=== PATIENT | male | born 1980 | race American Indian/Alaskan Native ===

== ENCOUNTER 2017-10-13 11:50 | Emergency (ER) | payer OTHER ==
[2017-10-13 12:28] LABS: Bilirubin,Urine NEG (Negative); Blood,Urine NEG (Negative); Color,Urine Straw (Yellow); Protein,Urine <15 mg/dL mg/dL (Negative); Urobilinogen,Urine < 2.0 mg/dL (<2.0)
[2017-10-13] MEDS ORDERED: NORCO 5/325 PO ONE (12:48)
--- NOTE | 2017-10-13 12:57 | Emergency Department Report ---
HPI - General Chief Complaint: Urogenital-Male Time Seen by Provider: 10/13/17 12:41 - HPI HPI: Room 19 The patient is a 37-year-old male presented with a chief complaint of groin pain. The patient states he noticed he had an erection this morning at 03:00 and it persisted even while he was asleep. Patient denies using any erectile dysfunction medications prescribed or [id number]. The patient states it wasn't until he was on his way to the hospital at 11:53 this morning when he began to experience detumescence. The patient states he no longer has an erection however he is developed intermittent waves of pain in his testicles. The patient currently denies testicular pain but states it comes in waves and when it is present he gives it a score of 8/10. Location: Groin/testicles Duration: [See above] Quality: Pain Severity: Currently 0/10 Modifying factors: [see above] Context: [see above] Mode of transportation: [not driving] ED Past Medical Hx - Past Medical History Hx Psychiatric Treatment: Yes (bipolar,anxiety) Hx Asthma: Yes Hx HIV: Yes (normal CD4 count September 2017) Additional medical history: Colitis - Surgical History Past Surgical History?: No - Family History Family history: no significant - Social History Smoking Status: Current Every Day Smoker (6 cigarettes daily) Substance Use Type: Alcohol (rarely), Marijuana - Medications Home Medications: Home Medications Medication Instructions Recorded Confirmed Last Taken Type Ciprofloxacin HCl [Cipro] 500 mg PO Q12H #20 tab 12/20/13 Unknown Rx HYDROcodone/APAP 5-325 [[place] 1 each PO Q6HR PRN #20 tablet 01/09/15 Unknown Rx 5/325] Ibuprofen [Motrin] 600 mg PO Q8H PRN #40 tablet 01/09/15 Unknown Rx Sulfamethoxazole/Trimethoprim 1 each PO BID #20 tablet 01/09/15 Unknown Rx [Bactrim DS TAB] Clindamycin [Clindamycin CAP] 300 mg PO Q6H #28 capsule 01/11/15 Unknown Rx Sulfamethoxazole/Trimethoprim 1 each PO Q12H #10 tablet 01/13/15 Unknown Rx [Bactrim DS TAB] HYDROcodone/APAP 5-325 [[facility] 1 - 2 each PO Q6HR PRN #10 tablet 10/13/17 Unknown Rx 5/325] Ibuprofen [Motrin 800 MG tab] 800 mg PO Q8HR PRN #20 tablet 10/13/17 Unknown Rx Levofloxacin [Levaquin TAB] 500 mg PO QDAY #7 tablet 10/13/17 Unknown Rx ED Review of Systems ROS: Stated complaint: 7 HR ERECTION Other details as noted in HPI Constitutional: denies: fever Eyes: denies: eye pain ENT: denies: throat pain Cardiovascular: denies: chest pain Gastrointestinal: denies: abdominal pain Genitourinary: dysuria Musculoskeletal: denies: back pain Neurological: denies: headache Physical Exam - Physical Exam Vital Signs: Vital Signs 10/13/17 11:56 Temperature 98.4 F Pulse Rate 88 Respiratory 18 Rate Blood Pressure 127/78 O2 Sat by Pulse 100 Oximetry ED Course Vital Signs 10/13/17 11:56 Temperature 98.4 F Pulse Rate 88 Respiratory 18 Rate Blood Pressure 127/78 O2 Sat by Pulse 100 Oximetry - Reevaluation(s) Reevaluation #1: 10/13/17 13:05 Patient states he feels like he is getting an erection again. On exam the patient is still flaccid. Will administer terbutaline Reevaluation #2: 10/13/17 13:58 Patient states he feels completely improved. Patient states he does not have an erection. Patient is asymptomatic currently ED Medical Decision Making - Lab Data Laboratory Tests 10/13/17 12:04 Urine Color Straw Urine Turbidity Clear Urine pH 8.0 H Ur Specific [place] 1.006 Urine Protein <15 mg/dl Urine Glucose (UA) Neg Urine Ketones Neg Urine Blood Neg Urine Nitrite Neg Urine Bilirubin Neg Urine Urobilinogen < 2.0 Ur Leukocyte Esterase Mod Urine WBC (Auto) 30.0 H Urine RBC (Auto) 4.0 U Epithel Cells (Auto) < 1.0 - Radiology Data Radiology results: report reviewed (testicular ultrasound), image reviewed ( testicular ultrasound) [facility] [address] [place] [address] Ultrasound Report Signed Patient: TAWANNA BLEVINS MR#: [id number] : Acct:[id number] Age/Sex: 37 / M ADM Date: 10/13/17 Loc: ED Attending Dr: Ordering Physician: JF JIANG MD Date of Service: 10/13/17 Procedure(s): US testicular doppler comp Accession Number(s): [id number] cc: JF JIANG MD ULTRASOUND SCROTAL INDICATION: Severe testicular pain. COMPARISON: None similar. FINDINGS: Longitudinal and transverse grayscale and color flow sonographic evaluation of the scrotum and its contents demonstrates normal testicular contour and echotexture bilaterally without suspicious intrinsic lesions. Preserved bilateral blood flow. Right testicle estimated at 4.3 x 2.2 x 2.7 cm while the left testicle is 4.2 x 2.4 x 3 cm. Minimal right hydrocele and an elongated 0.4 x 0.2 cm right epididymal head cyst noted as on image 13. Otherwise normal bilateral epididymi, approximately 1.2 x 0.8 cm on the right and 1.2 x 0.7 cm on the left. CONCLUSION: Minimal right hydrocele and a tiny right epididymal head cyst without acute testicular sonographic abnormality, as described. Thank you for the opportunity to participate in this patient's care. Transcribed By: RS Dictated By: AMRIK LATHAM MD Electronically Authenticated By: AMRIK LATHAM MD Signed Date/Time: 10/13/17 134 DD/DT: 1341 TD/TT: 10/13/17 1345 - Differential Diagnosis priapism, testicular torsion, epididymitis, UTI Critical care attestation.: If time is entered above; I have spent that time in minutes in the direct care of this critically ill patient, excluding procedure time. ED Disposition Clinical Impression: Priapism, Testicular pain, Right hydrocele, Epididymal cyst Disposition: TO HOME OR SELFCARE Is pt being admited?: No Does the pt Need Aspirin: No Condition: Stable Instructions: Priapism (ED), Hydrocele (ED) Additional Instructions: Return to the emergency department immediately should you develop worsening symptoms, fever, inability to tolerate food or liquid or any other concerns. Prescriptions: HYDROcodone/APAP 5-325 [[place] 5/325] 1 - 2 each PO Q6HR PRN #10 tablet PRN Reason: Pain Ibuprofen [Motrin 800 MG tab] 800 mg PO Q8HR PRN #20 tablet PRN Reason: Pain, Moderate (4-6) Levofloxacin [Levaquin TAB] 500 mg PO QDAY #7 tablet Referrals: JUAN ANTONIO GARCIA MD [Staff Physician] - 2-3 Days (Dr. Garcia is a urologist. Please follow-up with him for further evaluation) Time of Disposition: 14:01
[2017-10-13] MEDS ORDERED: BRETHINE IVP ONE (13:04)
--- NOTE | 2017-10-13 13:52 | Ultrasound Report ---
ULTRASOUND SCROTAL INDICATION: Severe testicular pain. COMPARISON: None similar. FINDINGS: Longitudinal and transverse grayscale and color flow sonographic evaluation of the scrotum and its contents demonstrates normal testicular contour and echotexture bilaterally without suspicious intrinsic lesions. Preserved bilateral blood flow. Right testicle estimated at 4.3 x 2.2 x 2.7 cm while the left testicle is 4.2 x 2.4 x 3 cm. Minimal right hydrocele and an elongated 0.4 x 0.2 cm right epididymal head cyst noted as on image 13. Otherwise normal bilateral epididymi, approximately 1.2 x 0.8 cm on the right and 1.2 x 0.7 cm on the left. CONCLUSION: Minimal right hydrocele and a tiny right epididymal head cyst without acute testicular sonographic abnormality, as described. Thank you for the opportunity to participate in this patient's care.
[2017-10-13 14:16] VITALS: BP 116/72
== END 2017-10-13 14:14 | disposition home or self-care (01) ==
LOC: ED 11:50
DX: N48.39 Other priapism (principal); N43.2 Other hydrocele; N50.3 Cyst of epididymis; F31.9 Bipolar disorder, unspecified; F41.9 Anxiety disorder, unspecified; J45.909 Unspecified asthma, uncomplicated; F17.210 Nicotine dependence, cigarettes, uncomplicated; F12.10 Cannabis abuse, uncomplicated
CPT/HCPCS: 81001; 93975; 96374; 99284; J3105

== ENCOUNTER 2019-05-03 15:02 | Emergency (ER) | payer OTHER ==
[2019-05-03] MEDS ORDERED: oxyCODONE /ACETAMINOPHEN 5-325MG TAB PO ONE (19:16)
[2019-05-03] MEDS ORDERED: SULFAMETHOXAZOLE/TRIMETHOPRIM 800/160MG DS TAB PO ONE (19:16)
[2019-05-03] MEDS ORDERED: IBUPROFEN 600 MG TAB PO ONE (19:16)
[2019-05-03] MEDS ORDERED: ONDANSETRON 4 MG ODT TAB PO ONE (19:16)
[2019-05-03] MEDS ORDERED: CLINDAMYCIN 300 MG CAP PO ONE (19:16)
--- NOTE | 2019-05-03 19:23 | Emergency Department Report ---
ED General Adult HPI - General Chief complaint: Skin/Abscess/Foreign Body Stated complaint: BOIL AND LT EAR PAIN Source: patient Mode of arrival: Ambulatory Limitations: No Limitations - History of Present Illness Initial comments: Patient is a 38-year-old -[place] male with no past medical history presents to the ED with complaint of acute onset persistent severely painful swollen erythematous maculopapular nonfluctuant rash on the left flank abdominal wall for the last 4 days. Patient also complains of acute onset persistent severe left ear pain and pressure for 2 months. Patient denies dizziness, nausea, vomiting, headache, chest pain, shortness of breath, abdominal pain, dizziness, fever and chills. Patient states that he suspects he may have been bitten I an unknown insect 5 days ago requesting the left flank abdominal wall painful rash. The patient states that he has been taking [id number] pain medications with no relief. MD Complaint: left flank swollen painful erythematous rash; left ear pain -: Sudden, days(s) (4) Location: face (left ear), abdomen (left flank) Radiation: non-radiation Severity scale (0 -10): 7 Quality: aching, sharp Consistency: constant Improves with: none Worsens with: none Associated Symptoms: denies other symptoms, headaches, loss of appetite, malaise, rash (erythematous maculopapular nonfluctuant rash on left flank). denies: confusion, chest pain, cough, diaphoresis, fever/chills, nausea/vomiting, seizure, shortness of breath, syncope Treatments Prior to Arrival: none - Related Data Previous Rx's Medication Instructions Recorded Last Taken Type Ciprofloxacin HCl [Cipro] 500 mg PO Q12H #20 tab 12/20/13 Unknown Rx HYDROcodone/APAP 5-325 [[place] 1 each PO Q6HR PRN #20 tablet 01/09/15 Unknown Rx 5/325] Ibuprofen [Motrin] 600 mg PO Q8H PRN #40 tablet 01/09/15 Unknown Rx Sulfamethoxazole/Trimethoprim 1 each PO BID #20 tablet 01/09/15 Unknown Rx [Bactrim DS TAB] Clindamycin [Clindamycin CAP] 300 mg PO Q6H #28 capsule 01/11/15 Unknown Rx Sulfamethoxazole/Trimethoprim 1 each PO Q12H #10 tablet 01/13/15 Unknown Rx [Bactrim DS TAB] HYDROcodone/APAP 5-325 [[place] 1 - 2 each PO Q6HR PRN #10 tablet 10/13/17 Unknown Rx 5/325] Ibuprofen [Motrin 800 MG tab] 800 mg PO Q8HR PRN #20 tablet 10/13/17 Unknown Rx levoFLOXacin [Levaquin TAB] 500 mg PO QDAY #7 tablet 10/13/17 Unknown Rx Acetaminophen/Codeine [Tylenol 1 tab PO Q6H PRN #12 tab 05/03/19 Unknown Rx /Codeine # 3 tab] Clindamycin [Clindamycin CAP] 300 mg PO Q8HR #60 capsule 05/03/19 Unknown Rx Ibuprofen [Motrin] 800 mg PO Q8HR PRN #24 tablet 05/03/19 Unknown Rx Ondansetron [Zofran Odt] 4 mg PO Q6HR PRN #15 tab.rapdis 05/03/19 Unknown Rx Sulfamethoxazole/Trimethoprim 1 each PO Q12H #20 tablet 05/03/19 Unknown Rx [Bactrim DS TAB] Allergies Allergy/AdvReac Type Severity Reaction Status Date / Time adhesive tape Allergy Rash Verified 01/13/15 09:04 ED Review of Systems ROS: Stated complaint: BOIL AND LT EAR PAIN Other details as noted in HPI Constitutional: denies: chills, fever Eyes: denies: eye pain, eye discharge, vision change ENT: ear pain (left ear pain and pressure), congestion. denies: throat pain Respiratory: denies: cough, shortness of breath, wheezing Cardiovascular: denies: chest pain, palpitations Endocrine: no symptoms reported Gastrointestinal: abdominal pain (left flank abdominal wall pain due to erythematous swollen and painful rash). denies: nausea, vomiting, diarrhea Genitourinary: denies: urgency, dysuria Musculoskeletal: arthralgia, myalgia. denies: back pain, joint swelling Skin: rash (erythematous maculopapular painful rash on left flank abdominal wall), change in color. denies: lesions Neurological: denies: headache, weakness, paresthesias Psychiatric: denies: anxiety, depression Hematological/Lymphatic: denies: easy bleeding, easy bruising ED Past Medical Hx - Past Medical History Hx Psychiatric Treatment: Yes (bipolar,anxiety) Hx Asthma: Yes Hx HIV: Yes (normal CD4 count September 2017) Additional medical history: Colitis, AFIB - Surgical History Past Surgical History?: No - Social History Smoking Status: Never Smoker Substance Use Type: None - Medications Home Medications: Home Medications Medication Instructions Recorded Confirmed Last Taken Type Ciprofloxacin HCl [Cipro] 500 mg PO Q12H #20 tab 12/20/13 Unknown Rx HYDROcodone/APAP 5-325 [[place] 1 each PO Q6HR PRN #20 tablet 01/09/15 Unknown Rx 5/325] Ibuprofen [Motrin] 600 mg PO Q8H PRN #40 tablet 01/09/15 Unknown Rx Sulfamethoxazole/Trimethoprim 1 each PO BID #20 tablet 01/09/15 Unknown Rx [Bactrim DS TAB] Clindamycin [Clindamycin CAP] 300 mg PO Q6H #28 capsule 01/11/15 Unknown Rx Sulfamethoxazole/Trimethoprim 1 each PO Q12H #10 tablet 01/13/15 Unknown Rx [Bactrim DS TAB] HYDROcodone/APAP 5-325 [[place] 1 - 2 each PO Q6HR PRN #10 tablet 10/13/17 Unknown Rx 5/325] Ibuprofen [Motrin 800 MG tab] 800 mg PO Q8HR PRN #20 tablet 10/13/17 Unknown Rx levoFLOXacin [Levaquin TAB] 500 mg PO QDAY #7 tablet 10/13/17 Unknown Rx Acetaminophen/Codeine [Tylenol 1 tab PO Q6H PRN #12 tab 05/03/19 Unknown Rx /Codeine # 3 tab] Clindamycin [Clindamycin CAP] 300 mg PO Q8HR #60 capsule 05/03/19 Unknown Rx Ibuprofen [Motrin] 800 mg PO Q8HR PRN #24 tablet 05/03/19 Unknown Rx Ondansetron [Zofran Odt] 4 mg PO Q6HR PRN #15 tab.rapdis 05/03/19 Unknown Rx Sulfamethoxazole/Trimethoprim 1 each PO Q12H #20 tablet 05/03/19 Unknown Rx [Bactrim DS TAB] ED Physical Exam - General Limitations: No Limitations General appearance: alert, in no apparent distress - Head Head exam: Present: atraumatic, normocephalic, normal inspection - Eye Eye exam: Present: normal appearance, PERRL, EOMI - ENT ENT exam: Present: normal exam, normal orophraynx, mucous membranes moist, other (swollen, bulging and erythematous left tympanic membrane with effusion) - Neck Neck exam: Present: normal inspection, full ROM. Absent: tenderness, lymphadenopathy - Respiratory Respiratory exam: Present: normal lung sounds bilaterally. Absent: respiratory distress, wheezes, rales, rhonchi, chest wall tenderness, accessory muscle use, prolonged expiratory - Cardiovascular Cardiovascular Exam: Present: regular rate, normal rhythm, normal heart sounds. Absent: systolic murmur, diastolic murmur, rubs, gallop - GI/Abdominal GI/Abdominal exam: Present: soft, tenderness (palpable left flank abdominal wall tenderness due to erythematous maculopapular and fluctuant rash), normal bowel sounds. Absent: distended, guarding, rebound, hyperactive bowel sounds, org anomegaly, mass - Extremities Exam Extremities exam: Present: normal inspection, full ROM, normal capillary refill - Back Exam Back exam: Present: normal inspection, full ROM. Absent: tenderness, CVA tenderness (L), muscle spasm, paraspinal tenderness, vertebral tenderness - Neurological Exam Neurological exam: Present: alert, oriented X3, CN II-XII intact, normal gait, reflexes normal - Psychiatric Psychiatric exam: Present: normal affect, normal mood - Skin Skin exam: Present: warm, dry, intact, rash (erythematous maculopapular nonfluctuant rash on left lateral abdominal wall with tenderness), erythema ED Course Vital Signs 05/03/19 15:08 Temperature 98.2 F Pulse Rate 92 H Respiratory 18 Rate Blood Pressure 142/92 O2 Sat by Pulse 100 Oximetry ED Medical Decision Making - Medical Decision Making This is a 38-year-old male who presented to the ED with complaint of acute onset persistent severe painful swollen erythematous maculopapular nonfluctuant rash on the left lateral abdominal wall for 4 days after being bitten by an unknown insect. In addition, patient is a complaints of painful left ear with pressure. In the ED, patient is alert and oriented 3 and is in no acute distress with normal vital signs but appears to be in pain. Patient was treated for pain and also given initial oral antibiotics. Patient was discharged home on medications for pain on oral antibiotics and advised to follow-up with his primary care physician in 7-10 days for reevaluation or return to the ED immediately if symptoms get worse. - Differential Diagnosis cellulitis; abscess; folliculitis; otitis media; URI; insect bite Critical care attestation.: If time is entered above; I have spent that time in minutes in the direct care of this critically ill patient, excluding procedure time. ED Disposition Clinical Impression: Cutaneous abscess of abdominal wall, Cellulitis of left abdominal wall, Acute otitis media with effusion of left ear, Insect bite (nonvenomous) of abdominal wall, initial encounter Disposition: TO HOME OR SELFCARE Is pt being admited?: No Does the pt Need Aspirin: No Condition: Stable Instructions: Cellulitis (ED), Abscess (ED), Otitis Media (ED), Insect Bite or Sting (ED) Additional Instructions: Take medications with food, drink plenty of fluids and follow up with your primary care physician in 5-7 days for reevaluation. Return to the emergency Department immediately if symptoms get worse. Prescriptions: Sulfamethoxazole/Trimethoprim [Bactrim DS TAB] 1 each PO Q12H #20 tablet Clindamycin [Clindamycin CAP] 300 mg PO Q8HR #60 capsule Ibuprofen [Motrin] 800 mg PO Q8HR PRN #24 tablet PRN Reason: Pain , Severe (7-10) Acetaminophen/Codeine [Tylenol /Codeine # 3 tab] 1 tab PO Q6H PRN #12 tab PRN Reason: Pain , Severe (7-10) Ondansetron [Zofran Odt] 4 mg PO Q6HR PRN #15 tab.rapdis PRN Reason: Nausea Referrals: [facility] [Outside] - 7-10 days Time of Disposition: 19:29 Print Language: UPPER [place]ORBI[place]
[2019-05-03 20:12] VITALS: BP 140/93
== END 2019-05-03 20:11 | disposition home or self-care (01) ==
LOC: ED 15:02
DX: S30.861A Insect bite (nonvenomous) of abdominal wall, initial encounter (principal); L03.311 Cellulitis of abdominal wall; L02.211 Cutaneous abscess of abdominal wall; J45.909 Unspecified asthma, uncomplicated; F31.9 Bipolar disorder, unspecified; Z79.899 Other long term (current) drug therapy; Z91.09 Other allergy status, other than to drugs and biological substances; H65.192 Other acute nonsuppurative otitis media, left ear; W57.XXXA Bitten or stung by nonvenomous insect and other nonvenomous arthropods, initial encounter; Y93.89 Activity, other specified; Y92.89 Other specified places as the place of occurrence of the external cause; Y99.8 Other external cause status
CPT/HCPCS: 99282; Q0162